=== PATIENT | male | born 1975 | race African-American/Black ===

== ENCOUNTER 2018-08-18 09:16 | Emergency (ER) | payer BC ==
[2018-08-18 09:22] VITALS: BP 143/89
--- NOTE | 2018-08-18 09:28 | EDPHY ---
H & P Stated Complaint: painful swelling l testicle since last week Time Seen by Provider: 08/18/18 09:28 HPI/ROS: CHIEF COMPLAINT: Left testicular swelling HISTORY OF PRESENT ILLNESS: The patient presents to the ED with a one-week history of left testicular pain and swelling. The patient does have a history of HIV with reassuring CD4 counts. The patient does practice unprotected anal intercourse. The patient denies any fever, cough, chills, vomiting or flank pain. He denies any history of testicular trauma or heavy exertion. The patient reports his pain is moderate in nature. REVIEW OF SYSTEMS: A comprehensive 10 point review of systems is otherwise negative aside from elements mentioned in the history of present illness. Source: Patient Exam Limitations: No limitations - Personal History Current Tetanus Diphtheria and Acellular Pertussis (TDAP): Yes - Medical/Surgical History Hx Asthma: No Hx Chronic Respiratory Disease: No Hx Diabetes: No Hx Cardiac Disease: No Hx Renal Disease: No Hx Cirrhosis: No Hx Alcoholism: No Hx HIV/AIDS: No Hx Splenectomy or Spleen Trauma: No Other PMH: htn, HIV - Social History Smoking Status: Never smoked - Physical Exam Exam: General Appearance: Alert, no distress Eyes: Pupils equal and round no pallor or injection ENT, Mouth: Mucous membranes moist Respiratory: There are no retractions, lungs are clear to auscultation Cardiovascular: Regular rate and rhythm Gastrointestinal: Abdomen is soft and nontender, no masses, bowel sounds normal Genitourinary: Left testicular tenderness primarily in the epididymis, normal testicular lie, no evidence of scrotal cellulitis Neurological: 5/5 strength all 4 extremities Skin: Warm and dry, no rashes Musculoskeletal: Neck is supple nontender Extremities: symmetrical, full range of motion Constitutional: Initial Vital Signs Temperature (C) 37.6 C 08/18/18 09:20 Heart Rate 104 H 08/18/18 09:20 Respiratory Rate 17 08/18/18 09:20 Blood Pressure 143/89 H 08/18/18 09:20 O2 Sat (%) 95 08/18/18 09:20 O2 Delivery Mode Room Air Allergies/Adverse Reactions: No Known Allergies Allergy (Unverified 08/18/18 09:19) Home Medications: Medication Instructions Recorded Atorvastatin Calcium 08/18/18 Carvedilol 08/18/18 Genuvoya 08/18/18 Hydrocodone/APAP 5/325 [Blythe 1 - 2 each PO Q6 PRN #20 tab 08/18/18 5/325] levOFLOXACIN [Levaquin] 500 mg PO DAILY #10 tab 08/18/18 Medical Decision Making - Diagnostics Imaging Results: Testicular ultrasound: Left testicular epididymitis noted. ED Course/Re-evaluation: The patient presents to the ED with complaints of left testicular pain. The patient's ultrasound demonstrates testicular epididymitis. Per up-to-date recommendations: In patients of any age who practice insertive anal intercourse, we suggest coverage for N. gonorrhoeae, C. trachomatis, and enteric pathogen infections ( Grade 2C). Ceftriaxone (250 mg intramuscular injection in one dose) plus a fluoroquinolone (levofloxacin 500 mg orally once daily for 10 days or ofloxacin 300 mg orally twice a day for 10 days) is an acceptable regimen. The patient was given ceftriaxone in the emergency department and will be discharged home with Levaquin. He is also given a prescription for Blythe for pain medication. Differential Diagnosis: Differential diagnosis considered includes testicular torsion, epididymitis, scrotal cellulitis Departure - Departure Disposition: Home, Routine, Self-Care Clinical Impression: Epididymitis Condition: Good Instructions: Epididymitis (ED) Additional Instructions: 1. Take Ibuprofen or Motrin 600 mg by mouth three times a day. 2. Take antibiotics as directed for next 10 days 3. Blythe as needed for severe pain 4. Please follow-up with your primary care provider for any unimproved symptoms. Prescriptions: Hydrocodone/APAP 5/325 [Blythe 5/325] 1 - 2 each PO Q6 PRN #20 tab PRN Reason: for pain levOFLOXACIN [Levaquin] 500 mg PO DAILY #10 tab
== END 2018-08-18 10:34 | disposition home or self-care (01) ==
DX: N45.1 Epididymitis (principal)
CPT/HCPCS: J0696